=== PATIENT | female | born 1965 | race African-American/Black ===

== ENCOUNTER 2017-05-17 09:32 | Outpatient (CLI) | payer BC ==
--- NOTE | 2017-05-24 08:32 | Mammography Report ---
SCREENING RIGHT MAMMOGRAM: The patient is post left mastectomy for cancer. Routine views of her right breast are compared to the prior exam in April 2016. In the MLO projection superiorly there is a possible change in the fibroglandular pattern compared to her prior study. No change is identified in the CC projection. The breast pattern otherwise appears generally heterogeneous and unchanged as well as unremarkable. CAD used. Impression: Possible asymmetry of the right breast. This may be a function of positioning. RECOMMENDATION: Additional mammogram imaging of the right breast and ultrasound, if needed. BI-RADS CATEGORY: 0 = Needs additional imaging evaluation ACR BI-RADS MAMMOGRAPHIC CODES: 0 = Needs additional imaging evaluation; 1 = Negative; 2 = Benign; 3 = Probably benign; 4 = Suspicious; 5 = Malignant; 6 = Known biopsy-proven malignancy COMMENT: 1. Dense breast tissue, i.e., adenosis, fibrocystic changes, etc., may obscure an underlying neoplasm. 2. Approximately 10% of cancers are not detected with mammography. 3. A negative mammography report should not delay biopsy if a clinically suspicious mass is present. COMMENT: Patient follow-up letters are generated by [employer].
== END 2017-05-17 09:33 | disposition home or self-care (01) ==
LOC: EDBD 09:32 → MAMMO 09:32
DX: Z12.31 Encounter for screening mammogram for malignant neoplasm of breast (principal)
CPT/HCPCS: G0202-52